=== PATIENT | male | born 1970 | race Caucasian/White ===

== ENCOUNTER → 2016-08-24 | Outpatient (CLI) | payer BC, OTHER ==
[~2016-08-24] VITALS: Ht 172.7 cm; Wt 136.1 kg
[~2016-08-24] MED LIST: COSO1SOL3 OD; EXCETAB81 PO; LIDOCAINE 2% INJ 100 MG/5 ML SDV (FOR ANES.) As Ordered ONE; NS 1,000 ML IV SCH; PROPOFOL 200 MG/20 ML VIAL As Ordered ONE; XALA0.002 OU; ZYRT10CA PO
--- NOTE | 2016-08-24 08:21 | ROOR ---
Patient Name: Miguel A Scott Procedure Date: 08/24/2016 7:56 AM Date of : 1970 Age: 46 Room: [facility] Gender: Male Note Status: Finalized Procedure: Colonoscopy to Cecum + Cold Snare Polypectomy Indications: High risk colon cancer surveillance: Personal history of colonic polyps, Last colonoscopy: 2012 Providers: Preston Morales MD Referring MD: Kayode Zelaya MD Requesting Provider: Medicines: Monitored Anesthesia Care Complications: No immediate complications. Procedure: Pre-Anesthesia Assessment: - The heart rate, respiratory rate, oxygen saturations, blood pressure, adequacy of pulmonary ventilation, and response to care were monitored throughout the procedure. The Colonoscope was introduced through the anus and advanced to the cecum, identified by appendiceal orifice and ileocecal valve. The colonoscopy was performed without difficulty. The patient tolerated the procedure well. The quality of the bowel preparation was excellent. Findings: The perianal and digital rectal examinations were normal. Non-bleeding internal hemorrhoids were found during retroflexion. The hemorrhoids were small and Grade I (internal hemorrhoids that do not prolapse). Two sessile polyps were found in the cecum. The polyps were small in size. These polyps were removed with a cold snare. Resection and retrieval were complete. One not retrieved. The exam was otherwise without abnormality on direct and retroflexion views. Impression: - Non-bleeding internal hemorrhoids. - Two small polyps in the cecum, removed with a cold snare. Resected and retrieved. One not retrieved. - The examination was otherwise normal on direct and retroflexion views. - The exam was otherwise normal to the cecum. Recommendation: - Patient has a contact number available for emergencies. The signs and symptoms of potential delayed complications were discussed with the patient. Return to normal activities tomorrow. Written discharge instructions were provided to the patient. - High fiber diet. - Discharge patient to home. - Continue present medications. - Await pathology results. - Telephone GI clinic for pathology results in 1 week. - Repeat colonoscopy for surveillance based on pathology results. - Return to referring physician. - The findings and recommendations were discussed with the patient's family. Preston Morales MD Preston Morales MD 08/24/2016 8:21:14 AM This report has been signed electronically. Number of Addenda: 0 Note Initiated On: 08/24/2016 7:56 AM Estimated Blood Loss: Estimated blood loss: none.
[2016-08-24 08:35] VITALS: BP 129/75
== END | disposition home or self-care (01) ==
LOC: M OPP 06:52
PROVIDERS: ATTEND Internal Medicine Gastroenterology
DX: Z12.11 Encounter for screening for malignant neoplasm of colon (principal); K64.0 First degree hemorrhoids; D12.0 Benign neoplasm of cecum; E66.9 Obesity, unspecified; Z79.899 Other long term (current) drug therapy

== ENCOUNTER → 2018-07-08 | Outpatient (CLI) | payer BC, OTHER ==
[~2018-07-08] MED LIST changes: -LIDOCAINE 2% INJ 100 MG/5 ML SDV (FOR ANES.) As Ordered ONE; -NS 1,000 ML IV SCH; -PROPOFOL 200 MG/20 ML VIAL As Ordered ONE; -XALA0.002 OU; +XALA0.007 OU
--- NOTE | 2018-07-13 15:10 | SLEEPHOME ---
DATE OF PROCEDURE: 07/08/2018 ORDERING PROVIDER: Shanita Villanueva Diagnostic home sleep testing was performed due to concern for the obstructive sleep apnea syndrome in this patient with a history of excessive somnolence. For testing, a nocturnal T3 respiratory monitoring device was used. Continuous record was made of pulse, oxygen saturation, airflow, chest and abdominal strain and body position. 10 hours and 59 minutes of data were reviewed. There were 8 hours recorded as time in bed, during which interval there were only 58 minutes marked as time in bed and during the interval marked as time in bed, there were 25 respiratory events identified of 10 seconds in duration or greater for a respiratory event index of 25.5. The events were obstructive. Baseline pulse rate 65, pulse rate ranged 56-93. Baseline saturation 93%, saturations seen as low as 85%. Testing was performed in both the supine and nonsupine positions. IMPRESSION: Abnormal home sleep testing with repetitive respiratory events and oxygen desaturations to 85% with a respiratory event index of 25.5 is consistent with the obstructive sleep apnea syndrome. It would appear the patient signaled the device inappropriately as the remaining hours of recording were quite typical for pattern of obstructive sleep apnea syndrome. RECOMMENDATIONS: The patient should be referred for formal sleep evaluation and in laboratory pressure titration.
== END ==
LOC: M SLEEP HO 09:45
PROVIDERS: ATTEND Nurse Practitioner Family
DX: R06.83 Snoring (principal)

== ENCOUNTER → 2018-08-14 | Outpatient (CLI) | payer BC, OTHER ==
--- NOTE | 2018-08-17 13:25 | SLEEPCENT ---
DATE OF PROCEDURE: 08/14/2018 ORDERED BY: Shanita Villanueva Nocturnal polysomnography was performed for the titration of pressure therapy in this patient with a clinical diagnosis of obstructive sleep apnea syndrome confirmed by home testing revealing a respiratory event index of 25.5. For testing, a ResMed Mirage FX nasal mask of standard size was used and 4 cm of water pressure were applied to the circuit and the lights were extinguished. 6 hours and 58 minutes of data were reviewed. There were 373 minutes of sleep identified. Sleep latency was mildly prolonged at 14.5 minutes. Rapid eye movement (REM) latency was normal at 70 minutes. Sleep architecture was good with 4 REM cycles. Overall sleep efficiency was 90%. The patient's electrocardiogram showed a sinus rhythm with an average heart rate of 73 beats per minute. Electroencephalogram (EEG) showed normal waveforms for awake and sleep. Respiratory events were fully palliated with C-PAP at a pressure of +8 and remaining measures of sleep physiology were normal. IMPRESSION: Obstructive sleep apnea syndrome (G47.33). RECOMMENDATION: Nightly use of pressure therapy at 8 cm of water.
== END ==
LOC: M SLEEP 20:00
PROVIDERS: ATTEND Nurse Practitioner Family
DX: G47.33 Obstructive sleep apnea (adult) (pediatric) (principal)

== ENCOUNTER → 2019-01-11 | Outpatient (CLI) | payer BC, OTHER ==
--- NOTE | 2019-01-12 08:29 | REP ---
Left ankle four views: There is question of a soft tissue edema laterally. This should be confirmed clinically. There is no fracture or dislocation. There are small accessory ossicles at the distal tip of the medial malleolus. The mortise is symmetric. There is a subtle lucency medially in the, possibly avascular necrosis in the appropriate clinical setting. Mineralization is otherwise normal. There is a calcaneal plantar spur. There is no Achilles spur. Impression: Subtle lucency in the talar dome medially compatible with avascular necrosis in the appropriate clinical setting. There is no associated fracture. There is a calcaneal plantar spur. There are accessory ossicles at the tip of the medial malleolus. Electronically Signed by Collin Flores MD 01/12/2019 08:21 A
== END ==
LOC: M WUC 16:58
PROVIDERS: ATTEND Nurse Practitioner Family
DX: M77.32 Calcaneal spur, left foot (principal); M25.775 Osteophyte, left foot

== ENCOUNTER → 2020-12-04 | Outpatient (CLI) | payer BC, OTHER ==
[~2020-12-04] MED LIST changes: +METF-838 PO
== END ==
LOC: M LABSMTC 09:43
PROVIDERS: ATTEND Anesthesiology
DX: Z01.812 Encounter for preprocedural laboratory examination (principal)

== ENCOUNTER 2020-12-09 07:01 | Day surgery (SDC) | payer BC, OTHER ==
[~2020-12-09] VITALS: Ht 172.7 cm; Wt 158.0 kg
[~2020-12-09 07:01] MED LIST changes: +NS 1,000 ML IV ONE
[2020-12-09] MEDS ORDERED: EXCETAB44 PO (07:45)
[2020-12-09] MEDS ORDERED: LIDOCAINE 2% 100MG/5ML SDV (FOR ANES.) As Ordered ONE (07:50)
[2020-12-09] MEDS ORDERED: propofoL 200 MG/20 ML VIAL As Ordered ONE ×3 (07:50→08:14)
--- NOTE | 2020-12-09 08:31 | ROOR ---
Patient Name: Miguel A Scott Procedure Date: 12/09/2020 8:02 AM Date of : 1970 Age: 50 Room: [facility] Gender: Male Note Status: Finalized Procedure: Total Colonoscopy to Cecum + Cold Snare Polypectomy + Hemoclips Indications: High risk colon cancer surveillance: Personal history of colonic polyps Providers: Prestno Morales MD Referring MD: Kayode Zelaya MD Requesting Provider: Medicines: Monitored Anesthesia Care Complications: No immediate complications. Procedure: Pre-Anesthesia Assessment: - The heart rate, respiratory rate, oxygen saturations, blood pressure, adequacy of pulmonary ventilation, and response to care were monitored throughout the procedure. The Colonoscope was introduced through the anus and advanced to the cecum, identified by appendiceal orifice and ileocecal valve. The colonoscopy was performed without difficulty. The patient tolerated the procedure well. The quality of the bowel preparation was excellent. Findings: The perianal and digital rectal examinations were normal. A medium polyp was found in the transverse colon. The polyp was semi-pedunculated. The polyp was removed with a cold snare. Resection was complete, but the polyp tissue was only partially retrieved. To prevent bleeding after the polypectomy, one hemostatic clip was successfully placed (MR conditional). There was no bleeding at the end of the procedure. The exam was otherwise without abnormality on direct and retroflexion views. Impression: - One medium polyp in the transverse colon, removed with a cold snare. Complete resection. Partial retrieval. Clip (MR conditional) was placed. - The examination was otherwise normal on direct and retroflexion views. - The exam was otherwise normal to the cecum. Recommendation: - Patient has a contact number available for emergencies. The signs and symptoms of potential delayed complications were discussed with the patient. Return to normal activities tomorrow. Written discharge instructions were provided to the patient. - High fiber diet. - Discharge patient to home. - Continue present medications. - Await pathology results. - Telephone GI clinic for pathology results in 1 week. - Repeat colonoscopy in 5 years for surveillance based on pathology results. - Return to referring physician. - The findings and recommendations were discussed with the patient's family. Procedure Code(s): --- Professional --- 93081, Colonoscopy, flexible; with removal of tumor(s), polyp(s), or other lesion(s) by snare technique Diagnosis Code(s): --- Professional --- Z86.010, Personal history of colonic polyps K63.5, Polyp of colon CPT copyright 2019 [employer]. All rights reserved. The codes documented in this report are preliminary and upon college counselor review may be revised to meet current compliance requirements. Preston Morales MD Preston Morales MD 12/09/2020 8:30:42 AM Electronically signed by Preston Morales MD Number of Addenda: 0 Note Initiated On: 12/09/2020 8:02 AM Estimated Blood Loss: Estimated blood loss: none.
[2020-12-09 09:01] VITALS: BP 144/68
== END 2020-12-09 09:01 | disposition home or self-care (01) ==
LOC: M OPP 07:01
PROVIDERS: ATTEND Internal Medicine Gastroenterology
DX: Z12.11 Encounter for screening for malignant neoplasm of colon (principal); Z86.010 Personal history of colon polyps; D12.3 Benign neoplasm of transverse colon

== ENCOUNTER → 2021-12-12 | Outpatient (CLI) | payer BC, OTHER ==
[~2021-12-12] MED LIST changes: +EXCETAB44 PO; -NS 1,000 ML IV ONE
== END ==
LOC: M WUC 09:46
PROVIDERS: ATTEND Family Medicine
DX: M25.552 Pain in left hip (principal); M25.752 Osteophyte, left hip; M25.78 Osteophyte, vertebrae; M51.36 Other intervertebral disc degeneration, lumbar region; M51.37 Other intervertebral disc degeneration, lumbosacral region

== ENCOUNTER → 2022-09-30 | Outpatient (CLI) | payer BC, OTHER ==
[~2022-09-30] MED LIST changes: -COSO1SOL3 OD; +DORZ10DR10 OD
== END ==
LOC: M PLAIMG 14:20
PROVIDERS: ATTEND Orthopaedic Surgery
DX: M16.12 Unilateral primary osteoarthritis, left hip (principal)

== ENCOUNTER → 2023-08-06 | Outpatient (CLI) | payer BC ==
[~2023-08-06] MED LIST changes: +ISOVUE-300 61% 100ML VIAL As Ordered ONE; +LIDOCAINE 1% MDV 20ML VIAL As Ordered ONE; +TRIAMCINOLONE ACETONIDE SUSP 40MG/ML 1ML VIAL As Ordered ONE
== END ==
LOC: M RAD 12:32
PROVIDERS: ATTEND Orthopaedic Surgery
DX: M16.12 Unilateral primary osteoarthritis, left hip (principal)
CPT/HCPCS: 20610; 77002; J3301; Q9967

== ENCOUNTER → 2024-04-17 | Outpatient (CLI) | payer BC ==
[~2024-04-17] MED LIST changes: -ISOVUE-300 61% 100ML VIAL As Ordered ONE; -LIDOCAINE 1% MDV 20ML VIAL As Ordered ONE; -TRIAMCINOLONE ACETONIDE SUSP 40MG/ML 1ML VIAL As Ordered ONE
[2024-04-17 10:18] LABS: BASO # 0.1 10^3/uL (0.0-0.2); BASO % 0.6 % (0.0-1.0); EOS # 0.3 10^3/uL (0.0-0.5); EOS % 3.2 % (0.0-3.0); HEMATOCRIT 45.3 % (42.0-52.0); HEMOGLOBIN 15.5 g/dl (13.5-17.5); LYMPH # 2.2 10^3/uL (1.5-5.0); LYMPH % 21.7 % (24.0-44.0); MEAN CORPUSCULAR HEMOGLOBIN 31.4 pg (27.0-33.0); MEAN CORPUSCULAR HGB CONC 34.2 g/dl (32.0-36.5); MEAN CORPUSCULAR VOLUME 91.9 fl (80.0-96.0); MONO # 0.6 10^3/uL (0.0-0.8); MONO % 6.3 % (2.0-8.0); NEUTROPHILS # 6.8 10^3/uL (1.5-8.5); NEUTROPHILS % 67.8 % (36.0-66.0); PLATELET COUNT, AUTOMATED 311 10^3/uL (150-450); RED BLOOD COUNT 4.93 10^6/uL (4.30-6.10); WHITE BLOOD COUNT 10.1 10^3/uL (4.0-10.0)
[2024-04-17 10:32] LABS: INR 0.95; PARTIAL THROMBOPLASTIN TIME 30.3 SECONDS (24.8-34.2)
[2024-04-17 10:44] LABS: ALBUMIN 3.9 G/DL (3.2-5.2); ALKALINE PHOSPHATASE 99 U/L (40-129); ALT/SGPT 24 U/L (7.0-40); AST/SGOT 9 U/L (<34); BILIRUBIN,TOTAL 0.5 MG/DL (0.3-1.2); BLOOD UREA NITROGEN 18 MG/DL (9-23); CALCIUM LEVEL 9.6 MG/DL (8.5-10.1); CARBON DIOXIDE LEVEL 29 MMOL/L (20-31); CHLORIDE LEVEL 105 MMOL/L (98-107); CREATININE FOR GFR 0.95 MG/DL (0.70-1.30); GLOMERULAR FILTRATION RATE > 60.0 (>56); GLUCOSE, FASTING 106 MG/DL (60-100); POTASSIUM SERUM 4.4 MMOL/L (3.5-5.1); SODIUM LEVEL 138 MMOL/L (136-145); TOTAL PROTEIN 7.9 G/DL (5.7-8.2)
== END ==
LOC: M EKG 09:32
PROVIDERS: ATTEND Family Medicine
DX: Z01.818 Encounter for other preprocedural examination (principal)